=== PATIENT | female | born 1965 | race Caucasian/White ===

== ENCOUNTER 2017-06-21 12:28 | Emergency (ER) | payer MEDICARE, OTHER ==
[~2017-06-21] VITALS: Ht 157.5 cm; Wt 64.4 kg
[2017-06-21] MEDS ORDERED: MULT-723 PO (12:49)
[2017-06-21] MEDS ORDERED: ATOR20TA86 PO (12:49)
[2017-06-21] MEDS ORDERED: FLUT1BLS IH (12:49)
[2017-06-21] MEDS ORDERED: BENZ1TAB10 PO (12:49)
[2017-06-21] MEDS ORDERED: QUET200T PO (12:49)
[2017-06-21] MEDS ORDERED: GABA-533 PO (12:49)
[2017-06-21] MEDS ORDERED: PARO20TA24 PO (12:49)
[2017-06-21] MEDS ORDERED: CLON-570 PO (12:49)
[2017-06-21] MEDS ORDERED: TRAZ150 PO (12:49)
[2017-06-21] MEDS ORDERED: PERTUSS(ACELL),DIPH,TET VAC/PF 0.5 ML VIAL IM ONE (13:00)
[2017-06-21] MEDS ORDERED: BUPIVACAINE HCL/PF 0.5% 10 ML VIAL INJ ONE (13:00)
[2017-06-21 14:07] VITALS: BP 97/54
== END 2017-06-21 14:55 | disposition home or self-care (01) ==
LOC: EMS 12:38
DX: S01.111A Laceration without foreign body of right eyelid and periocular area, initial encounter (principal); W45.8XXA Other foreign body or object entering through skin, initial encounter; Y93.89 Activity, other specified; Y92.89 Other specified places as the place of occurrence of the external cause; Y99.8 Other external cause status
CPT/HCPCS: 12013; 90471; 90715; 99283; J3490